=== PATIENT | female | born 1985 | race Caucasian/White ===

== ENCOUNTER 2020-09-09 12:00 | Outpatient (CLI) | payer BC ==
[~2020-09-09] VITALS: Ht 162.6 cm; Wt 83.0 kg
[~2020-09-09 12:00] MED LIST: COLACE 100100 MG/CAP PO; FERROUS SU325 MG/TAB PO; IBU800 M1 PO; NORMODYNE200 MG PO; PERCOCET 325 MG1 TA2 PO; PRENATAL; PROCARDIA XL 6060 MG PO; TYLENOL PM EXTR1 TA1 PO; ZOFRAN 4MG T4 MG/TAB
--- NOTE | 2020-09-09 12:10 | NUR ---
Pt arrived on unit from clinic for prolonged monitoring due to tachycardia in clinic. Pt denies any contractions, leaking of fluid or vaginal bleeding and reports normal movement. EFM and toco monitors started. Vital signs WNL. Plan of care reviewed with pt. IV started and labs obtained. LR infusing per order. See EMAR for details.
--- NOTE | 2020-09-09 12:10 | NUR ---
Dr. Eaton called regarding pt coming over from the office. Orders received for IV fluids, labs and prolonged monitoring.
[2020-09-09 12:30] VITALS: BP 134/84; PULSE 86
--- NOTE | 2020-09-09 12:45 | NUR ---
Dr. Eaton on the unit. FHR tracing reviewed.
[2020-09-09 12:51] LABS: BASO % 0.3 % (0.0-2.0); EOS % 0.4 % (0-4.0); GRAN # 7.6 (1.4-6.5); GRAN % 73.9 % (42.2-75.2); HEMOGLOBIN 11.4 g/dl (12.5-16.0); LYMPH # 1.5 (1.2-3.4); LYMPH % 14.3 % (20.0-51.0); MEAN CELL VOLUME 90 fl (80.0-100.0); MEAN CORPUSCULAR HEMOGLOBIN 30 pg (27.0-31.0); MEAN CORPUSCULAR HGB CONC 33 g/dl (33.0-37.0); MEAN PLATELET VOLUME 9.8 fl (7.4-10.4); MONO % 9.9 % (1.7-9.3); PLATELET COUNT 232 K/mm3 (130-400); RED BLOOD COUNT 3.79 M/mm3 (4.10-5.30); REDCELL DISTRIBUTION WIDTH-CV 15.1 % (11.5-14.5)
[2020-09-09 12:52] LABS: HEMATOCRIT 34.1 % (37.0-47.0)
[2020-09-09 13:00] VITALS: TEMP 98.1
[2020-09-09 13:07] LABS: ALBUMIN 3.1 gm/dL (3.5-5.0); BILIRUBIN,TOTAL 0.7 mg/dL (0.0-1.0); CALCIUM 8.9 mg/dL (8.4-10.2); CREATININE, serum 0.48 (0.52-1.25); POTASSIUM 3.3 mmol/L (3.4-5.0); TOTAL PROTEIN 6.2 gm/dL (6.4-8.2)
[2020-09-09 13:36] LABS: THYROID STIMULATING HORMONE 0.324 uIU/mL (0.465-4.680)
--- NOTE | 2020-09-09 14:30 | NUR ---
Dr. Eaton on the unit. Labs and FHR tracing reviewed. Orders for discharge home received.
[2020-09-09] MEDS ORDERED: ASPIRIN 81M81 MG/TA2 PO (14:47)
[2020-09-09] MEDS ORDERED: PROBIOTIC BLEN1 EACH PO (14:47)
[2020-09-09] MEDS ORDERED: UNISOM25 MG PO (14:48)
[2020-09-09] MEDS ORDERED: MELATONIN3 M1 (14:48)
[2020-10-01] MEDS ORDERED: ZOVIRAX400 MG (08:34)
== END 2020-09-09 15:00 | disposition home or self-care (01) ==
LOC: LDRO 12:00
PROVIDERS: Student in an Organized Health Care Education/Training Program
DX: O48.1 Prolonged pregnancy (principal); Z3A.36 36 weeks gestation of pregnancy

== ENCOUNTER 2020-10-01 10:05 | Inpatient (IN) | payer BC ==
[2020-10-01] VITALS (17 sets, daily range): BP systolic 108–138; BP diastolic 68–99; PULSE 63–92; TEMP 97.7–98.9
[~2020-10-01] VITALS: Ht 162.6 cm; Wt 84.1 kg
[~2020-10-01 10:05] MED LIST changes: +ASPIRIN 81M81 MG/TA2 PO; +MELATONIN3 M1; +PROBIOTIC BLEN1 EACH PO; +UNISOM25 MG PO; +ZOVIRAX400 MG
--- NOTE | 2020-10-01 10:29 | NUR ---
1029-Patient placed on EFM. Reactive FHR. BP elevated 141/102, maternal HR 101. Reviewed plan of care and assessment. Consents reviewed and signed. 1040-IV to right wrist. Blood collected and sent to lab per orders. LR infusing per protocol and order, see EMAR. 1045-BP 130/79. 1116-Patient off EFM AGATHA Chaudhari to patients room to review spinal and preop. Patient ambulates to bathroom, easily voids. Abdoment cleansed per protocol. Dr. Eaton in route to hospital. Awaiting floor delivery prior to ambulating to OR.
[2020-10-01 11:27] LABS: BASO % 0.3 % (0.0-2.0); EOS % 0.4 % (0-4.0); GRAN # 8.6 (1.4-6.5); GRAN % 75.7 % (42.2-75.2); HEMOGLOBIN 12.4 g/dl (12.5-16.0); LYMPH # 1.7 (1.2-3.4); LYMPH % 14.6 % (20.0-51.0); MEAN CELL VOLUME 91 fl (80.0-100.0); MEAN CORPUSCULAR HEMOGLOBIN 30 pg (27.0-31.0); MEAN CORPUSCULAR HGB CONC 34 g/dl (33.0-37.0); MEAN PLATELET VOLUME 9.9 fl (7.4-10.4); MONO # 0.9 (0.1-0.6); MONO % 7.8 % (1.7-9.3); PLATELET COUNT 230 K/mm3 (130-400); RED BLOOD COUNT 4.09 M/mm3 (4.10-5.30); REDCELL DISTRIBUTION WIDTH-CV 15.3 % (11.5-14.5)
--- NOTE | 2020-10-01 12:46 | NUR ---
1246-AROM by , Attempt to deliver head. MD calls for VACCUM 1247-VACCUM to head, pop off x1. VACCUM placed back on head. 1248- head delivered with vaccum assit by Dr. Eaton immediately followed by body via repeat c/s.
--- NOTE | 2020-10-01 13:40 | NUR ---
1340-Patient to PACU via bed. Recieved report from AGATHA Church. Remained with patient per protocol. Dressing C/D/I. Binder in place. Lochia moderate.
--- NOTE | 2020-10-01 14:15 | NUR ---
1415-Patient back to room from PACU. Remains A&O x4. Infant skin to skin. Difficulty reading BP due to post op shakes and positioning holding . Current reading 124/90, Fundal massage firm. Small to moderate lochia, no clots currently. SCDs bilaterally. Updated on plan of care. 1445-Patient reports 'some pain in abdomen' remains without nausea and tolerates PO. 2tabs percocet given per order see EMAR. 1502-Patient reports 'pain seems worse.' 2mg IV morphine given, see EMAR. 1602-Patient reports 'pain doesn't seem to have improved' BP 138/93 2mg IV morphine given per order, see EMAR.
--- NOTE | 2020-10-01 16:35 | NUR ---
1333-IM methergine given for moderate lochia and small quarter size clot expressed with fundal massage. Fundus firm.
[2020-10-01 17:21] LABS: COLLECTION METHOD CATHETER
[2020-10-01 17:34] LABS: CALCIUM 8.9 mg/dL (8.4-10.2); CREATININE, serum 0.44 (0.52-1.25); POTASSIUM 3.8 mmol/L (3.4-5.0)
[2020-10-01 17:42] LABS: MUCOUS Present /lpf; PH 7 (5-8); SQUAMOUS EPITHELIAL None Seen /hpf; URINE APPEARANCE Clear; URINE BACTERIA None Seen /hpf; URINE BILIRUBIN Negative (NEGATIVE); URINE BLOOD 1+ (NEGATIVE); URINE COLOR Yellow; URINE GLUCOSE Negative (NEGATIVE); URINE KETONE 1+ (NEGATIVE); URINE LEUKOCYTE ESTERASE Negative (NEGATIVE); URINE NITRATE Negative (NEGATIVE); URINE PROTEIN(semi-quant) 1+ (NEGATIVE); URINE UROBILINOGEN Negative (NEGATIVE); URINE WBC 0-2 /hpf
[2020-10-02 02:30] VITALS: BP 117/78; PULSE 79; TEMP 97.8
[2020-10-02 06:45] VITALS: BP 114/80; PULSE 57; TEMP 97.4
[2020-10-02] MEDS ORDERED: PERCOCET 325 MG1 TA2 PO (10:56)
[2020-10-02] MEDS ORDERED: IBU800 M1 PO (10:56)
[2020-10-02 15:45] VITALS: BP 117/78; PULSE 62; TEMP 97.8
[2020-10-02 20:30] VITALS: BP 129/86; PULSE 63; TEMP 97.7
[2020-10-03 07:30] VITALS: BP 107/77; PULSE 62; TEMP 97.8
[2020-10-03 21:30] VITALS: BP 121/77; PULSE 79; TEMP 97.9
[2020-10-04] MEDS ORDERED: NORCO 325 MG-51 TAB PO (08:28)
[2020-10-04 08:34] VITALS: BP 127/89; PULSE 68; TEMP 98.2
== END 2020-10-04 14:10 | disposition home or self-care (01) | DRG 787 ==
LOC: OB 10:05 → LDR 14:04 → OB 10-04 14:10
PROVIDERS: ADMIT Student in an Organized Health Care Education/Training Program
PROC: 10D00Z1 Extraction of Products of Conception, Low, Open Approach (ICD-10-PCS; principal; 2020-10-01)
DX: O34.211 Maternal care for low transverse scar from previous cesarean delivery (principal); O98.52 Other viral diseases complicating childbirth; O36.63X0 Maternal care for excessive fetal growth, third trimester, not applicable or unspecified; O99.344 Other mental disorders complicating childbirth; F32.9 Major depressive disorder, single episode, unspecified; O99.824 Streptococcus B carrier state complicating childbirth; B00.9 Herpesviral infection, unspecified; O26.893 Other specified pregnancy related conditions, third trimester; E05.80 Other thyrotoxicosis without thyrotoxic crisis or storm; O90.89 Other complications of the puerperium, not elsewhere classified; R11.0 Nausea; T50.995A Adverse effect of other drugs, medicaments and biological substances, initial encounter; Z67.41 Type O blood, Rh negative; Z3A.39 39 weeks gestation of pregnancy; Z37.0 Single live birth
CPT/HCPCS: J0690; J1885; J2210; J2270; J2370; J2405; J2590; J2791; J7120